=== PATIENT | male | born 1945 ===

== ENCOUNTER 2023-02-20 06:00 | Outpatient (RCR) | payer MEDICARE, MEDICAID, SELFPAY | END 2023-03-15 23:59 | disposition home or self-care (01) | LOC: SPT 06:00 | PROVIDERS: Visit Provider Family Medicine | DX: M54.42 Lumbago with sciatica, left side (principal); M54.41 Lumbago with sciatica, right side; G89.29 Other chronic pain | CPT/HCPCS: 97110; 97140; 97162; 97530 ==

== ENCOUNTER 2023-03-16 06:00 | Outpatient (RCR) | payer MEDICARE, MEDICAID, SELFPAY | END 2023-04-15 23:59 | disposition home or self-care (01) | LOC: SPT 06:00 | PROVIDERS: Visit Provider Family Medicine | DX: M54.42 Lumbago with sciatica, left side (principal); M54.41 Lumbago with sciatica, right side | CPT/HCPCS: 97110; 97140 ==

== ENCOUNTER 2023-04-16 06:00 | Outpatient (RCR) | payer MEDICARE, MEDICAID, SELFPAY | END 2023-04-17 23:59 | disposition home or self-care (01) | LOC: SPT 06:00 | PROVIDERS: Visit Provider Family Medicine | DX: M54.42 Lumbago with sciatica, left side (principal); M54.41 Lumbago with sciatica, right side | CPT/HCPCS: 97140; 97530 ==

== ENCOUNTER 2023-10-02 11:13 | Outpatient (RCR) | payer MEDICARE, MEDICAID, SELFPAY | END 2023-10-14 23:59 | disposition home or self-care (01) | LOC: SPT 11:13 | PROVIDERS: Visit Provider Family Medicine | DX: M54.42 Lumbago with sciatica, left side (principal); M54.41 Lumbago with sciatica, right side | CPT/HCPCS: 97110; 97161 ==

== ENCOUNTER 2023-10-15 06:00 | Outpatient (RCR) | payer MEDICARE, MEDICAID, SELFPAY | END 2023-11-14 23:59 | disposition home or self-care (01) | LOC: SPT 06:00 | PROVIDERS: Visit Provider Family Medicine | DX: M54.42 Lumbago with sciatica, left side (principal); M54.41 Lumbago with sciatica, right side; G89.29 Other chronic pain | CPT/HCPCS: 97110 ==

== ENCOUNTER 2024-07-15 06:30 | Outpatient (RCR) | payer MEDICARE, MEDICAID, SELFPAY | END 2024-08-13 23:55 | disposition home or self-care (01) | LOC: SPT 06:30 | PROVIDERS: Visit Provider Internal Medicine Medical Oncology | DX: R53.1 Weakness (principal) | CPT/HCPCS: 97110; 97116; 97140; 97162; 97530 ==

== ENCOUNTER 2024-08-14 12:59 | Outpatient (RCR) | payer MEDICARE, MEDICAID, SELFPAY | END 2024-09-11 13:57 | disposition home or self-care (01) | LOC: SPT 12:59 | PROVIDERS: Visit Provider Internal Medicine Medical Oncology | DX: R53.1 Weakness (principal) | CPT/HCPCS: 97110; 97140; 97530 ==